=== PATIENT | female | born 1950 | race Caucasian/White ===

== ENCOUNTER 2022-07-05 00:45 | Day surgery (SDC) | payer MEDICARE, MEDICAID, SELFPAY ==
--- NOTE | 2022-06-29 08:55 | PM.IMHP ---
H&P: HPI History of Present Illness Date/Time: 06/29/22 08:55 Chief Complaint: Rectocele Narrative: 72-year-old with a symptomatic rectocele. She would like this corrected. She has baseline urinary symptoms. She is not interested in treatment for overactive bladder or stress incontinence at this time Review of Systems Review of Systems: All systems reviewed & are unremarkable except as noted in HPI and below Meds Home Medications and Allergies Allergies Allergy/AdvReac Type Severity Reaction Status Date / Time Sulfa (Sulfonamide Allergy Mild Verified 07/16/09 14:31 Antibiotics) Exam Narrative: No acute distress Normal breathing Alert orient x3 Rectocele to just beyond the introitus Assessment and Plan Assessment and plan (1) Rectocele: Code(s): N81.6 - Rectocele Status: Acute Assessment and Plan: Proceeding with rectocele repair. Understands risks of bleeding, infection, damage to the bowel, dyspareunia, recurrent or persistent incontinence. Understands risks dyspareunia. She agrees to proceed
--- NOTE | 2022-07-01 10:37 | PC.NURSE ---
Report to the Outpatient Waiting Room, entrance under the green pavilion located off [facility], at time _0745 on date __07/05/22 . Planned Procedure Time: __944 . Time changes happen often and if your time is changed the preop area will call you the afternoon before. - You and your visitor will be asked to self-screen and do not enter if you have any COVID symptoms. - Only one visitor is requested with a max of two and NO children visitors are allowed at this time. - The patient visitor may be requested to leave or wait in car when not with patient due to distancing restrictions. - A mask is optional within the hospital at this time. Patients may have clear liquids (water, carbonated beverages, clear teas, apple juice) until 3 hours prior to surgery with a maximum of 20 ounces. - No food from midnight until time of surgery - Infants may have breast milk until 4 hours before surgery, formula 6 hours prior to surgery. - Children will be allowed to drink immediately following surgery. If applicable, please bring a bottle or sippy cup to assist with drinking. Juice, water, soda, and popsicles are readily available. For infants on formula, please bring formula the day of surgery. Pacifiers are allowed. Take the following medications with a SIP of water the morning of surgery: __GABAPENTIN, DO NOT STOP ANY OF YOUR OTHER PRESCRIPTION MEDICATIONS PRIOR TO SURGERY ?EXCEPT THE FOLLOWING Medications to discontinue per physician __ALL VITAMINS/SUPPLEMENTS 3 DAYS PRE OP .LAST DOSE 07/01/22 Please no make-up, nail belarusian, hairspray, perfume, deodorant, or body powder the day of surgery. No jewelry (including any body piercings) or valuables the day of surgery, leave them at home. Please take a shower or bath the night before, or the morning of, surgery with an antibacterial soap. Wear comfortable, loose fitting clothing. Children are encouraged to wear pajamas. - Jewelry must be removed prior to entering the operating room. Rings and piercings that are not removed may be cut off. - The hospital will not accept responsibility for valuables. - Please leave all valuables, including medications, at home the day of surgery. If you are going home after surgery, a licensed scoop driver must drive you home. - NO public transportation without another adult if you receive anesthesia. - We recommend that an adult stay with you for 24 hours following discharge. - We also recommend that you do not drive, make important decision, drink alcoholic beverages, or take any drugs that were not prescribed by your health care provider for at least 24 hours after your discharge time. For Pediatric surgeries, we recommend two adults accompany the child home. Follow any additional instructions given to you from your surgeon. If you or anyone in your household have experienced Covid symptoms in the past week, please notify your surgeon or the nurse liaison at the phone number below for possible testing. Telephone instructions given to __PATIENT and asked if any additional questions and then verbalized understanding. Patient advised to call surgeon office or pre surgery nurse liaison [phone] if any additional questions.
[2022-07-01 10:44] VITALS: BMI 28.2
--- NOTE | 2022-07-04 16:14 | WPDANESEPPF ---
Anes - Initial Pre Proc Eval Procedure: Operation Date: 07/05/22 09:45 Proposed Procedures p Rectocele Repair - Td Scales MD Date/Time: 07/04/22 16:14 Surgeon: Td Scales MD Pre Op Diagnosis: Rectocele Patient Data Age: 72 Gender: F Height: 1.68 m Weight: 79.4 kg Allergies Allergy/AdvReac Type Severity Reaction Status Date / Time Sulfa (Sulfonamide Allergy Mild Swelling Verified 07/01/22 10:17 Antibiotics) levofloxacin AdvReac Itching Verified 07/01/22 10:18 Home Medications Medication Instructions Recorded Confirmed Type acetaminophen 500 mg capsule 500 mg PO Q6H PRN Pain 07/01/22 07/01/22 History albuterol 90 mcg/actuation aerosol 2 mcg inhalation PRN PRN Allergy 07/01/22 07/01/22 History inhaler Symptoms atorvastatin 10 mg tablet 10 mg PO HS 07/01/22 07/01/22 History cyanocobalamin (vitamin B-12) 1,000 mcg PO DAILY 07/01/22 07/01/22 History 1,000 mcg tablet cyclobenzaprine 10 mg tablet 10 mg PO PRN PRN Muscle Spasm 07/01/22 07/01/22 History dulaglutide 0.75 mg/0.5 mL 0.75 mg subcut WEEKLY 07/01/22 07/01/22 History subcutaneous pen injector (Trulicity) gabapentin 300 mg capsule 300 mg PO HS 07/01/22 07/01/22 History magnesium 200 mg tablet 300 mg PO HS 07/01/22 07/01/22 History metformin 500 mg tablet,extended 500 mg PO BID 07/01/22 07/01/22 History release 24 hr omeprazole 20 mg capsule,delayed 20 mg PO DAILY 07/01/22 07/01/22 History release sucralfate 1 gram tablet 1 g PO DAILY 07/01/22 07/01/22 History Patient hx anesthesia problems: none Family hx anesthesia problems: none Results Review: All pre-operative results and documents have been reviewed as part of the pre-operative evaluation. [facility] Past Medical History Medical History (Updated 07/04/22 @ 16:15 by Chan Restrepo MD) Angina pectoris Diabetes Hyperlipidemia Overweight (BMI 25.0-29.9) Rectocele Social History Social History Smoking status: Never smoker Living arrangements: with family Spiritual care concerns: No Anes - Eval Final PreProcedure Day of Procedure 07/04/22 16:14 Patient weight: overweight Heart: regular rate and rhythm Lungs: clear to auscultation and normal air movement Airway: Mallampati scale class II Neurological: alert and oriented Last oral intake: >/= 8 hours ASA classification: III Emergent: no Anesthetic plan: proceed Anesthesia type and monitoring: general GIVS Results Review: All pre-operative results and documents have been reviewed as part of the pre-operative evaluation. Informed Consent: The patient's anesthetic plan and its attendant risks and benefits were discussed with the patient/family/POA. Questions were solicited and answers provided to the satisfaction of the patient/family/POA.
[2022-07-05] VITALS (11 sets, daily range): BP systolic 116–145; BP diastolic 50–69; PULSE 55–73; RESP 12–16; TEMP 36.3–36.6; O2SAT 94–100
--- NOTE | 2022-07-05 04:37 | WPDHPUPDATE1 ---
History and Physical Update Update Date/Time: 07/05/22 04:37 History and Physical has been reviewed, including an updated exam of the patient. There are NO changes in the patient's condition. Risks, benefits, and alternatives have been discussed and questions answered. Patient agrees to proceed with procedure.
[2022-07-05] MEDS: LACTATED RINGERS 1,000 ML 30 ML IV CONT (08:15)
[2022-07-05 08:31] LABS: Glucose Point of Care 99 mg/dl (65-105)
[2022-07-05] MEDS: ceFAZolin 2 GM/D5W 50 ML 2 GM/50 ML BAG IVPB (09:41)
[2022-07-05] MEDS: BUPIVACAINE/EPINEPHRINE 0.25% 10 ML VIAL 20 ML INFILTRATE (10:02)
--- NOTE | 2022-07-05 10:33 | P.OP_ITS ---
Procedure Note - Detailed Date of Procedure 07/05/22 Pre-op Diagnosis Rectocele Post-op Diagnosis Same Procedure Performed Rectocele repair Surgeon Td Scales MD [employer] [facility] General Indications This is a was symptomatic rectocele. She is not sexually active. She desires correction. She presents today for the above procedure. She understands risks of bleeding, infection, damage to the bowel, bowel fistula, recurrence of prolapse, dyspareunia. She agrees to proceed Findings Rectocele/enterocele Description of Procedure She was correctly identified. Informed consent obtained. She from the operating room. She was given general anesthesia. She was placed in dorsal lithotomy position. She was prepped and draped in a sterile fashion. Time-out performed. I placed a [place] retractor. Placed Robert catheter. She had a rectocele just beyond the introitus. I grasped with Allis clamps. I infiltrated the subcutaneous tissues with local anesthesia. I made a midline vaginal incision. I dissected out laterally the rectum from the underlying fascial structures. I then this out to the apex as well. She had a rectocele as well as a enterocele component. I did not enter the enterocele. Once I had the dissection performed. I performed a standard plication repair. I used several interrupted sutures of 0 Vicryl. I took great care not to injure the bowel. Once the rectocele was plicated I trimmed excess vaginal mucosa. I closed the vaginal mucosa running 2-0 Vicryl suture. There was excellent hemostasis. She was awakened transferred to PACU in stable condition. Implants None Estimated Blood Loss 10 Drains No Packing No Complications No immediate complications Condition Stable Disposition PACU
[2022-07-05] MEDS: fentaNYL CITRATE INJ (*CRX) 100 MCG/2 ML VIAL 25 MCG IV PUSH ×6 (10:42→11:34)
[2022-07-05 10:50] LABS: Glucose Point of Care 111 mg/dl (65-105)
== END 2022-07-05 12:31 | disposition home or self-care (01) ==
PROVIDERS: PCP Student in an Organized Health Care Education/Training Program; Visit Provider Urology
PROC: 0JQC0ZZ Repair Pelvic Region Subcutaneous Tissue and Fascia, Open Approach (ICD-10-PCS; CPT 45560; principal; 2022-07-05 09:45)
DX: N81.6 Rectocele (principal); N81.5 Vaginal enterocele; E11.9 Type 2 diabetes mellitus without complications; E78.5 Hyperlipidemia, unspecified; Z79.51 Long term (current) use of inhaled steroids; Z79.899 Other long term (current) drug therapy; Z79.84 Long term (current) use of oral hypoglycemic drugs
CPT/HCPCS: 57250; 82948; A9270; J0690; J1100; J2250; J2405; J2704; J3010; J7030; J7120